=== PATIENT | female | born 1990 | race Caucasian/White ===

== ENCOUNTER 2019-06-29 11:32 | Emergency (ER) | payer OTHER ==
[~2019-06-29] VITALS: Ht 167.6 cm; Wt 63.5 kg
[2019-06-29 11:58] LABS: BILIRUBIN NEGATIVE (NEGATIVE); BLOOD 3+ (NEGATIVE); CLARITY CLOUDY (CLEAR); COLOR YELLOW (YELLOW); GLUCOSE NEGATIVE (NEGATIVE); KETONE NEGATIVE (NEGATIVE); LEUKO ESTERASE 1+ (NEGATIVE); NITRITE POSITIVE (NEGATIVE); SPECIFIC GRAVITY 1.015 (1.005-1.030); UROBILINOGEN 0.2 E.U./dl (0.2-1.0)
[2019-06-29 12:26] LABS: BACTERIA 4+
[2019-06-29] MEDS ORDERED: DIFLUCAN150 MG PO (13:50)
[2019-06-29] MEDS ORDERED: LEVOFLOXACIN500 MG PO (13:50)
== END 2019-06-29 13:56 ==
LOC: ED 11:32
PROVIDERS: Emergency Medicine
DX: J40 Bronchitis, not specified as acute or chronic (principal); N39.0 Urinary tract infection, site not specified